=== PATIENT | male | born 1985 | race Caucasian/White ===

== ENCOUNTER 2024-03-05 10:41 | Emergency (ER) | payer OTHER ==
[2024-03-05] MEDS ORDERED: ONDANSETRON 4 MG/2 ML VIAL ONE (10:47)
[2024-03-05] MEDS ORDERED: FAMOTIDINE 20 MG/2 ML VIAL IV ONE (10:47)
[2024-03-05] MEDS ORDERED: NA CHLORIDE 0.9% 1,000 ML ONE ×2 (10:47→11:37)
[2024-03-05] MEDS ORDERED: MORPHINE 4 MG/ML SYR ONE ×2 (10:47→11:37)
[2024-03-05 11:09] LABS: Absolute Basophils 0.1 K/uL (0-0.5); Absolute Eosinophils 0.2 K/uL (0-0.5); Absolute Lymphocytes (CBC) 1.7 K/uL (0.7-4.9); Absolute Monocytes 0.5 K/uL (0.1-1.3); Absolute Neutrophil 4.1 K/uL (1.8-8.0); Basophils % 1.8 % (0-1.3); Eosinophils % 2.4 % (0-4.4); Hematocrit 42.4 % (39.6-49.0); Hemoglobin 15.1 g/dL (13.6-17.9); Lymphocytes % 25.5 % (15.3-44.8); MCH 31.5 pg (27.0-35.0); MCHC 35.6 g/dL (32.0-36.0); MCV 88.6 fL (80-100); MPV 8.7 fL (7.6-11.3); Monocytes % 7.4 % (3.3-12.3); Neutrophils % 62.9 % (41.7-73.7); Platelets 217 thou/uL (152-406); RBC Red Blood Cell Count 4.79 M/uL (4.33-5.43); Red Cell Distribution Width 12.2 % (12.1-15.2)
[2024-03-05 11:22] LABS: Albumin 4.3 g/dL (3.4-5.0); Albumin/Globulin Ratio 1.4 (1.1-1.8); Anion Gap 4.5 mEq/L (5.0-15.0); Bilirubin Total 0.6 mg/dL (0.2-1.0); Globulin 3.1 g/dL (2.3-3.5); Potassium 4.5 mEq/L (3.5-5.1); Protein, Total 7.4 g/dL (6.4-8.2)
--- NOTE | 2024-03-05 12:27 | RAD REPORT ---
EXAM: Right upper quadrant ultrasound. CLINICAL HISTORY: ABD PAIN COMPARISON: None. FINDINGS: Gallbladder: Normal. Bile ducts: No intrahepatic or extrahepatic biliary dilatation. Common bile duct measures 2 mm. Limited imaging of the liver shows no concerning finding. IMPRESSION: Unremarkable exam.
--- NOTE | 2024-03-05 12:36 | RAD REPORT ---
EXAMINATION: CT ABDOMEN AND PELVIS WITH CONTRAST CLINICAL INDICATION: ABD PAIN TECHNIQUE: CT abdomen and pelvis was performed, after the administration of IV contrast, as per [facility] protocol. Axial, sagittal and coronal reconstructions were obtained. One or more of the following dose reduction techniques were used: Automated exposure control, adjustment of the mA and k V according to patient size, and iterative reconstruction. Unless otherwise specified, incidental findings do not require dedicated imaging follow-up. COMPARISON: No prior exam. FINDINGS: LOWER CHEST: The visualized lung bases are clear. LIVER: Normal in size and contour. No focal lesion. Grossly unremarkable gallbladder. SPLEEN: Normal size. No focal lesion. PANCREAS: No mass, ductal dilation, or queenie-pancreatic fluid. ADRENALS: Normal; no mass. KIDNEYS: Normal size and contour. No hydronephrosis. GASTROINTESTINAL TRACT: No evidence of free air, significant intra-abdominal free fluid, bowel obstru ction or abscess. There is significant stool seen throughout the colon. APPENDIX: Normal appendix. LYMPH NODES: No lymphadenopathy. MUSCULOSKELETAL: No acute or suspicious osseous abnormality. ADDITIONAL FINDINGS: Prominent bladder distention. IMPRESSION: No acute or concerning abnormalities seen in the abdomen or pelvis. Bladder distention noted.
[2024-03-05 12:49] LABS: Specific Gravity 1.014 (1.005-1.030); Urine Bilirubin NEGATIVE (Negative); Urine Blood Negative (Negative); Urine Clarity Clear (Clear); Urine Color Colorless (Yellow); Urine Glucose NEGATIVE (Negative); Urine Ketones NEGATIVE (Negative); Urine Microscopic Reflex YN NO UMIC; Urine Nitrite NEGATIVE (Negative); Urine Protein NEGATIVE (Negative); Urine Urobilinogen Normal (Normal)
--- NOTE | 2024-03-05 13:10 | EDPHYS ---
Physician Documentation [facility] Name: Mack Simmons Age: 38 yrs Sex: Male : 1985 Arrival Date: 03/05/2024 Time: 10:41 Bed 8 Private MD: DENITA Physician Ronni Giraldo HPI: 03/05 10:44 This 38 yrs old Male presents to ER via Unassigned with complaints of RIGHT brinda FLANK PAIN. 10:44 The patient presents with abdominal pain right lower quadrant. Onset: The brinda symptoms/episode began/occurred yesterday. The patient presents with pain that is acute, with no known mechanism of injury. The symptoms are located in the low back, right mid back and right low back. Onset: The symptoms/episode began/occurred yesterday. The pain does not radiate. Associated signs and symptoms: The patient has no apparent associated signs or symptoms. Modifying factors: The patient symptoms are alleviated by remaining still, the patient symptoms are aggravated by. The symptoms do not radiate. Historical: - Allergies: 10:44 No Known Allergies; rs5 - PMHx: 10:44 facial fracture; rs5 - PSHx: 10:44 facial surgery; rs5 - Immunization history:: Adult Immunizations up to date. - Infectious Disease History:: Denies. - Social history:: Smoking status: Patient denies any tobacco usage or history of. - Family history:: not pertinent. ROS: 10:44 Constitutional: Negative for fever, chills, and weight loss, Eyes: Negative for injury, brinda pain, redness, and discharge, ENT: Negative for injury, pain, and discharge, Neck: Negative for injury, pain, and swelling, Cardiovascular: Negative for chest pain, palpitations, and edema, Respiratory: Negative for shortness of breath, cough, wheezing, and pleuritic chest pain, : Negative for injury, bleeding, discharge, and swelling, MS/Extremity: Negative for injury and deformity, Skin: Negative for injury, rash, and discoloration, Neuro: Negative for headache, weakness, numbness, tingling, and seizure, Psych: Negative for depression, anxiety, suicide ideation, homicidal ideation, and hallucinations, Allergy/Immunology: Negative for hives, rash, and allergies, Endocrine: Negative for neck swelling, polydipsia, polyuria, polyphagia, and marked weight changes, Hematologic/Lymphatic: Negative for swollen nodes, abnormal bleeding, and unusual bruising, 10:44 Abdomen/GI: Positive for abdominal pain, abdominal distension, of the anterior aspect of right lateral abdomen, posterior aspect of right lateral abdomen, right upper quadrant and right lower quadrant, Exam: 10:44 Constitutional: This is a well developed, well nourished patient who is awake, alert, brinda and in no acute distress. Head/Face: Normocephalic, atraumatic. Eyes: Pupils equal round and reactive to light, extra-ocular motions intact. Lids and lashes normal. Conjunctiva and sclera are non-icteric and not injected. Cornea within normal limits. Periorbital areas with no swelling, redness, or edema. ENT: Nares patent. No nasal discharge, no septal abnormalities noted. Tympanic membranes are normal and external auditory canals are clear. Oropharynx with no redness, swelling, or masses, exudates, or evidence of obstruction, uvula midline. Mucous membranes moist. Neck: Trachea midline, no thyromegaly or masses palpated, and no cervical lymphadenopathy. Supple, full range of motion without nuchal rigidity, or vertebral point tenderness. No Meningismus. Chest/axilla: Normal chest wall appearance and motion. Nontender with no deformity. No lesions are appreciated. Cardiovascular: Regular rate and rhythm with a normal S1 and S2. No gallops, murmurs, or rubs. Normal PMI, no JVD. No pulse deficits. Respiratory: Lungs have equal breath sounds bilaterally, clear to auscultation and percussion. No rales, rhonchi or wheezes noted. No increased work of breathing, no retractions or nasal flaring. Male : Normal genitalia with no discharge or lesions. Skin: Warm, dry with normal turgor. Normal color with no rashes, no lesions, and no evidence of cellulitis. MS/ Extremity: Pulses equal, no cyanosis. Neurovascular intact. Full, normal range of motion., bilateral aka Neuro: Awake and alert, GCS 15, oriented to person, place, time, and situation. Cranial nerves II-XII grossly intact. Motor strength 5/5 in all extremities. Sensory grossly intact. Cerebellar exam normal. Normal gait. Psych: Awake, alert, with orientation to person, place and time. Behavior, mood, and affect are within normal limits. 10:44 Abdomen/GI: Inspection: abdomen appears normal, Bowel sounds: normal, Palpation: moderate abdominal tenderness, in the anterior aspect of right lateral abdomen, posterior aspect of right lateral abdomen, right upper quadrant and right lower quadrant, Vital Signs: 10:42 BP 133 / 81; Pulse 71; Resp 17; Temp 98(O); Pulse Ox 99% ; rs5 12:28 BP 127 / 74; Pulse 77; Resp 17; Pulse Ox 99% ; rs5 13:45 BP 132 / 77; Pulse 70; Resp 17; Pulse Ox 99% ; rs5 MDM: 10:42 Medical Screening Exam initiated brinda 10:46 Differential diagnosis: cholecystitis, Cholelithiasis, gastritis, non-specific abd brinda pain, pancreatitis. Data reviewed: vital signs, nurses notes, EMS record, lab test result(s), radiologic studies, CT scan. Consideration of Admission/Observation Escalation of care including admission/observation considered. I considered the following discharge prescriptions or medication management in the emergency department Medications were administered in the Emergency Department. See MAR. Independent interpretation of the following test(s) in the Emergency Department CT Scan: My interpretation is CT ABD/PELVIS. Test considered but Not performed: MRI: NO MRCP. Care significantly affected by the following chronic conditions: FACE FX. 03/05 10:43 Order name: CBC with Diff; Complete Time: 11: [facility] 03/05 10:43 Order name: CMP; Complete Time: : [facility] 03/05 10:43 Order name: Lipase; Complete Time: 11: [facility] 03/05 10:43 Order name: Urinalysis w/ reflexes; Complete Time: 13: [facility] 03/05 10:43 Order name: CT Abd/Pelvis - IV Contrast Only; Complete Time: 13: [facility] 03/05 10:49 Order name: US Abdomen Limited; Complete Time: 13: [facility] 03/05 10:43 Order name: IV Saline Lock; Complete Time: : [facility] 03/05 10:43 Order name: Labs collected and sent; Complete Time: 11: [facility] Administered Medications: 11: Drug: Famotidine IVP 20 mg IVP once; dilute with 10 mL 0.9% NaCl; give over 2 minutes rs5 Route: IVP; Site: right antecubital; 11:22 Follow up: Response: No adverse reaction rs5 11:01 Drug: Ondansetron IVP 4 mg IVP once; over 2 minutes Route: IVP; Site: right antecubital;rs5 11:22 Follow up: Response: No adverse reaction rs5 11:01 Drug: NS 0.9% IV 1000 ml IV at 1 bolus Per protocol; to be given as a bolus over 60 rs5 minutes Route: IV; Rate: 1 bolus; Site: right antecubital; 12:10 Follow up: Response: No adverse reaction; IV Status: Completed infusion; IV Intake: rs5 999ml 11:02 Drug: morphine IVP or IV 4 mg IVP once over 4 mins Route: IVP; Infused Over: 4 mins; rs5 Site: right antecubital; 11:22 Follow up: Response: No adverse reaction; Pain is decreased rs5 11:45 Drug: NS 0.9% IV 1000 ml IV at 1000 ml once; to be given as a bolus over 60 minutes rs5 Route: IV; Rate: 1000 ml; Site: right antecubital; 13:01 Follow up: Response: No adverse reaction; IV Status: Completed infusion; IV Intake: rs5 999ml 11:45 Drug: morphine IVP or IV 4 mg IVP once over 4 mins Route: IVP; Infused Over: 4 mins; rs5 Site: right antecubital; 12:10 Follow up: Response: No adverse reaction; Pain is decreased rs5 Disposition Summary: 03/05/24 13:09 Discharge Ordered Notes: Location: Home brinda Problem: new brinda Symptoms: have improved brinda Condition: Stable brinda Diagnosis - Abdominal pain, Generalized brinda - Abdominal tenderness - RIGHT FLANK PAIN brinda Followup: brinda - With: Private Physician - When: 2 - 3 days - Reason: Recheck today's complaints, Continuance of care, Re-evaluation by your physician Discharge Instructions: - Discharge Summary Sheet brinda - Abdominal Pain, Adult brinda - Abdominal Pain, Adult, [id number] brinda Forms: - Medication Reconciliation Form brinda - Antibiotic Education brinda - Prescription Opioid Use brinda - Patient Portal Instructions brinda - Leadership Thank You Letter brinda Prescriptions: - Diclofenac Sodium 75 mg Oral tablet, delayed release (enteric coated) - take 1 tablet ORAL route 2 times per day; 20 tablet; Refills: 0, Product brinda Selection Permitted Signatures: Dispatcher [employer] Ronni Estrella MD MD cha Sotelo, Ricky RN RN rs5 Corrections: (The following items were deleted from the chart) 10:44 10:44 CBC+H.LAB.BRZ ordered. EDMS EDMS 10:44 10:44 COMPREHENSIVE METABOLIC PANEL+C.LAB.BRZ ordered. EDMS EDMS 10:44 10:44 LIPASE+C.LAB.BRZ ordered. EDMS EDMS 10:44 10:44 Urinalysis+U.LAB.BRZ ordered. EDMS EDMS 10:44 10:44 Abdomen Pelvis W Con+CT.RAD.BRZ ordered. EDMS EDMS
--- NOTE | 2024-03-05 13:10 | ER ---
Nurse's Notes [facility] Name: Mack Simmons Age: 38 yrs Sex: Male : 1985 Arrival Date: 03/05/2024 Time: 10:41 Bed 8 Private MD: Diagnosis: Abdominal pain, Generalized;Abdominal tenderness-RIGHT FLANK PAIN Presentation: 03/05 10:42 Chief complaint: EMS states: Right sided flank pain that started yesterday, worse rs5 today. Coronavirus screen: At this time, the client does not indicate any symptoms associated with coronavirus-19. Ebola Screen: No symptoms or risks identified at this time. Initial Sepsis Screen: Does the patient meet any 2 criteria? No. Patient's initial sepsis screen is negative. Does the patient have a suspected source of infection? No. Patient's initial sepsis screen is negative. Risk Assessment: Do you want to hurt yourself or someone else? Patient reports no desire to harm self or others. Onset of symptoms was March 05, 2024. Care prior to arrival: Medication(s) given: 30 mg Toradol IV initiated. 20 GA, in the right antecubital area. 10:42 Method Of Arrival: EMS: [facility] rs5 10:42 Acuity: LYN 3 rs5 Historical: - Allergies: 10:44 No Known Allergies; rs5 - PMHx: 10:44 facial fracture; rs5 - PSHx: 10:44 facial surgery; rs5 - Immunization history:: Adult Immunizations up to date. - Infectious Disease History:: Denies. - Social history:: Smoking status: Patient denies any tobacco usage or history of. - Family history:: not pertinent. Screenin:45 [facility] ED Fall Risk Assessment (Adult) History of falling in the last 3 months, rs5 including since admission No falls in past 3 months (0 pts) Confusion or Disorientation No (0 pts) Intoxicated or Sedated No (0 pts) Impaired Gait No (0 pts) Mobility Assist Device Used No (0 pt) Altered Elimination No (0 pt) Score/Fall Risk Level 0 - 2 = Low Risk Oriented to surroundings, Maintained a safe environment. Abuse screen: Denies threats or abuse. Nutritional screening: No deficits noted. Tuberculosis screening: No symptoms or risk factors identified. Assessment: 10:45 General: Appears in no apparent distress. uncomfortable, Behavior is calm, cooperative. rs5 Pain: Complains of pain in right flank Pain currently is 8 out of 10 on a pain scale. Quality of pain is described as aching, Is continuous. Neuro: Level of Consciousness is awake, alert, obeys commands, Oriented to person, place, time, situation. Cardiovascular: Patient's skin is warm and dry. Respiratory: Airway is patent Respiratory effort is even, unlabored, Respiratory pattern is regular, symmetrical. GI: Abdomen is round non-distended, Abd is soft and non tender X 4 quads. : No signs and/or symptoms were reported regarding the genitourinary system. EENT: No signs and/or symptoms were reported regarding the EENT system. Derm: Skin is intact, Skin is pink, warm \T\ dry. Musculoskeletal: Range of motion: intact in all extremities. 11:58 Reassessment: Patient and/or family updated on plan of care and expected duration. Pain rs5 level reassessed. Patient is alert, oriented x 3, equal unlabored respirations, skin warm/dry/pink. 13:01 Reassessment: Patient and/or family updated on plan of care and expected duration. Pain rs5 level reassessed. Patient is alert, oriented x 3, equal unlabored respirations, skin warm/dry/pink. 13:48 Reassessment: Patient and/or family updated on plan of care and expected duration. Pain rs5 level reassessed. Patient is alert, oriented x 3, equal unlabored respirations, skin warm/dry/pink. Vital Signs: 10:42 BP 133 / 81; Pulse 71; Resp 17; Temp 98(O); Pulse Ox 99% ; rs5 12:28 BP 127 / 74; Pulse 77; Resp 17; Pulse Ox 99% ; rs5 13:45 BP 132 / 77; Pulse 70; Resp 17; Pulse Ox 99% ; rs5 ED Course: 10:42 Patient arrived in ED. brinda 10:42 Ronni Giraldo MD is Attending Physician. brinda 10:42 Andrews Corona RN is Primary Nurse. rs5 10:44 Triage completed. rs5 10:44 Maintain EMS IV. Dressing intact. Good blood return noted. Site clean \T\ dry. Gauge \T\ rs 5 site: 18 g RAC. Flushed with 10 mL NS. 10:45 Patient has correct armband on for positive identification. Bed in low position. Call rs5 light in reach. Side rails up X2. 10:45 No provider procedures requiring assistance completed. rs5 11:10 US Abdomen Limited In Process Unspecified. EDMS 11:47 CT Abd/Pelvis - IV Contrast Only In Process Unspecified. EDMS 13:50 IV discontinued, intact, bleeding controlled, No redness/swelling at site. Pressure rs5 dressing applied. Administered Medications: 11:01 Drug: Famotidine IVP 20 mg IVP once; dilute with 10 mL 0.9% NaCl; give over 2 minutes rs5 Route: IVP; Site: right antecubital; 11:22 Follow up: Response: No adverse reaction rs5 11:01 Drug: Ondansetron IVP 4 mg IVP once; over 2 minutes Route: IVP; Site: right antecubital;rs5 11:22 Follow up: Response: No adverse reaction rs5 11:01 Drug: NS 0.9% IV 1000 ml IV at 1 bolus Per protocol; to be given as a bolus over 60 rs5 minutes Route: IV; Rate: 1 bolus; Site: right antecubital; 12:10 Follow up: Response: No adverse reaction; IV Status: Completed infusion; IV Intake: rs5 999ml 11:02 Drug: morphine IVP or IV 4 mg IVP once over 4 mins Route: IVP; Infused Over: 4 mins; rs5 Site: right antecubital; 11:22 Follow up: Response: No adverse reaction; Pain is decreased rs5 11:45 Drug: NS 0.9% IV 1000 ml IV at 1000 ml once; to be given as a bolus over 60 minutes rs5 Route: IV; Rate: 1000 ml; Site: right antecubital; 13:01 Follow up: Response: No adverse reaction; IV Status: Completed infusion; IV Intake: rs5 999ml 11:45 Drug: morphine IVP or IV 4 mg IVP once over 4 mins Route: IVP; Infused Over: 4 mins; rs5 Site: right antecubital; 12:10 Follow up: Response: No adverse reaction; Pain is decreased rs5 Medication: 10:45 VIS not applicable for this client. rs5 Intake: 12:10 IV: 999ml; Total: 999ml. rs5 13:01 IV: 999ml; Total: 1998ml. rs5 Outcome: 13:09 Discharge ordered by . brinda 13:50 Discharged to Law Enforcement rs5 13:50 Condition: stable rs5 13:50 Discharge instructions given to patient, Instructed on discharge instructions, follow up and referral plans. Demonstrated understanding of instructions, follow-up care, medications, Prescriptions given X 1, 13:52 Patient left the ED. rs5 Signatures: Dispatcher [employer] EDME Ronni Giraldo MD MD cha Sotelo, Ricky RN RN rs5 Corrections: (The following items were deleted from the chart) 16:06 14:10 Reassessment: Patient and/or family updated on plan of care and expected rs5 duration. Pain level reassessed. Patient is alert, oriented x 3, equal unlabored respirations, skin warm/dry/pink. rs5 16:06 13:10 BP 132 / 77; Pulse 70bpm; Resp 17bpm; Pulse Ox 99%; rs5 rs5
[2024-03-06 02:58] VITALS: BP 127/74; TEMP 98; O2SAT 99
== END 2024-03-05 13:52 | disposition home or self-care (01) ==
LOC: ER 10:41
DX: R10.84 Generalized abdominal pain (principal)
CPT/HCPCS: 96361; 85025; 36415; 81003; 83690; 80053; 74177; 76705; 96375; 96374; 99284; Q9967; J2405; J7030